=== PATIENT | female | born 1960 | race Hispanic/Latino ===

== ENCOUNTER 2019-01-06 23:03 | Emergency (ER) | payer OTHER ==
[2019-01-06] MEDS ORDERED: TETANUS/DIPHTHERIA TOXOID [ADULT] 0.5 ML VIAL IM ONE (23:37)
[2019-01-07] MEDS ORDERED: AMOXICILLIN/POTASSIUM CLAV 875-125 TABLET PO ONE (00:06)
== END 2019-01-07 00:18 | disposition home or self-care (01) ==
LOC: EDH 23:03
DX: S61.031A Puncture wound without foreign body of right thumb without damage to nail, initial encounter (principal); W54.0XXA Bitten by dog, initial encounter; Y93.89 Activity, other specified; Y92.89 Other specified places as the place of occurrence of the external cause; Y99.8 Other external cause status
CPT/HCPCS: 73140; 90471; 90714